=== PATIENT | female | born 1990 | race Caucasian/White ===

== ENCOUNTER 2017-11-11 13:55 | Emergency (ER) | payer BC ==
[2017-11-11 14:07] VITALS: BP 132/82
--- NOTE | 2017-11-11 14:36 | EDM.PDOC ---
<Yolanda Cohen - Last Filed: 11/11/17 14:24> ED HPI GENERAL MEDICAL PROBLEM - General Chief Complaint: Lower Extremity Injury/Pain Stated Complaint: ANKLE/FOOT INJURY Time Seen by Provider: 11/11/17 14:11 Source of Information: Reports: Patient History Limitations: Reports: No Limitations - History of Present Illness INITIAL COMMENTS - FREE TEXT/NARRATIVE: Patient comes in today for c/o left foot pain. Patient was walking upstairs at 2100 yesterday when she missed a step and plantar flexed, striking the dorsal midfoot against the step. Patient was able to ambulate with assistance. Walking and palpation increase pain. Application of ice reduces pain. Rates pain at 6/10. Pain radiates proximally up her leg when taking a step. Patient denies ankle pain. Onset: Sudden Onset Date: 11/10/17 Onset Time: 21:00 Location: Reports: Lower Extremity, Left (dorsal mid foot) Quality: Reports: Ache Severity: Moderate Improves with: Reports: Cold Therapy Worsens with: Reports: Movement Treatments SUPERVISOR ROUGH END: Reports: Cold Therapy Left Feet Pain Score (Numeric/FACES): 6 - Related Data Allergies Allergy/AdvReac Type Severity Reaction Status Date / Time latex Allergy Rash Verified 11/11/17 14:02 Penicillins Allergy Hives Verified 11/11/17 14:02 Home Meds: Home Meds . 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 Neurological History: Reports: Migraines Psychiatric History: Reports: Anxiety - Infectious Disease History Infectious Disease History: Reports: Chicken Pox - Past Surgical History HEENT Surgical History: Reports: Oral Surgery Social & Family History - Tobacco Use Smoking Status *Q: Current Every Day Smoker Years of Tobacco use: 10 Packs/Tins Daily: 0.4 - Caffeine Use Caffeine Use: Reports: Soda Other Caffeine Use: mountain due;energy drinks - Recreational Drug Use Recreational Drug Use: No Review of Systems - Review of Systems Constitutional: Reports: No Symptoms Respiratory: Reports: No Symptoms. Denies: Shortness of Breath Cardiovascular: Denies: Chest Pain Musculoskeletal: Reports: Foot Pain (Left foot) Skin: Reports: Other (abrasion on left dorsal mid foot) ED EXAM, GENERAL - Physical Exam Exam Limited By: No Limitations General Appearance: Alert, WD/WN, No Apparent Distress Respiratory/Chest: No Respiratory Distress, Lungs Clear, Normal Breath Sounds Cardiovascular: Normal Peripheral Pulses, Regular Rate, Rhythm Extremities: Limited Range of Motion. No: Joint Swelling, Redness (Left dorsal midfoot ecchymosis swelling, and 3-4 cm diameter, minor abrasion. AROM: no pain with moving toes, slight pain with inversion, increased pain with eversion. PROM: pain with flexing 2nd toe, no pain with flexion of great toe or 3rd, 4th, or 5th toes. Palpation: no pain with palpation of medial/lateral malleolus, base of the 5th metatarsal, medial cuneiform, navicular, calcaneous or achilles. Pain with palpation of the base of the 2nd metatarsal, middle and lateral cuneiforms, and the cuboid. No pain with AROM or PROM of the ankle. ) Skin Exam: Ecchymosis (left dorsal midfoot ) Course - Vital Signs Last Recorded V/S: Last Vital Signs Temp 98.7 F 11/11/17 14:02 Pulse 72 11/11/17 14:02 Resp BP 132/82 11/11/17 14:02 Pulse Ox 98 11/11/17 14:02 - Orders/Labs/Meds Orders: Active Orders 24 hr Category Date Time Status Foot Comp Min 3V Lt [CR] Stat Exams 11/11/17 14:21 Taken Departure - Departure Disposition: Home, Self-Care 01 Clinical Impression: Foot abrasion Qualifiers: Encounter type: initial encounter Laterality: left Qualified Code(s): S90.812A - Abrasion, left foot, initial encounter Sprain of foot, left Qualifiers: Encounter type: initial encounter Qualified Code(s): S93.602A - Unspecified sprain of left foot, initial encounter - Discharge Information Referrals: PCP,None [Primary Care Provider] - Forms: ED Department Discharge Additional Instructions: Soak your foot in warm soapy water 2 times per day and apply antibiotic ointment after. Ice your foot for 15 minutes 3 times per day for 2 days. Take motrin or tylenol for pain. Please return if you are worse or your primary care provider. - My Orders Last 24 Hours: My Active Orders 11/11/17 14:21 Foot Comp Min 3V Lt [CR] Stat - Assessment/Plan Last 24 Hours: My Active Orders 11/11/17 14:21 Foot Comp Min 3V Lt [CR] Stat <Jatin Moscoso - Last Filed: 11/11/17 15:13> Review of Systems - Review of Systems Review Of Systems: See Below ED EXAM, GENERAL - Physical Exam Exam: See Below Course - Re-Assessments/Exams Free Text/Narrative Re-Assessment/Exam: 11/11/17 15:11 I examined the patient myself and I agree with Yolanda's assessment and plan. Her foot x-ray looks good. I will discharge her home. Departure - Departure Time of Disposition: 15:15 Condition: Good - Discharge Information *PRESCRIPTION DRUG MONITORING PROGRAM REVIEWED*: Not Applicable *COPY OF PRESCRIPTION DRUG MONITORING REPORT IN PATIENT LISA: Not Applicable
--- NOTE | 2017-11-11 15:12 | CR ---
Left foot: Four views of the left foot were obtained. Comparison: No previous foot exam. Joint spaces are maintained. No fracture, dislocation or other bony abnormality is seen. Impression: 1. No abnormality is appreciated on left foot exam. Diagnostic code #1
== END 2017-11-11 15:45 | disposition home or self-care (01) ==
LOC: JD.ED 13:55
DX: S93.602A Unspecified sprain of left foot, initial encounter (principal); S90.32XA Contusion of left foot, initial encounter; S90.812A Abrasion, left foot, initial encounter; F17.210 Nicotine dependence, cigarettes, uncomplicated; Z91.040 Latex allergy status; Z88.0 Allergy status to penicillin; W22.8XXA Striking against or struck by other objects, initial encounter
CPT/HCPCS: 73630-26-LT; 73630-LT; 99283

== ENCOUNTER 2018-07-26 09:12 | Emergency (ER) | payer BC ==
[2018-07-26 09:39] VITALS: BP 123/70
[2018-07-26] MEDS ORDERED: predniSONE 20 MG Tab PO ONE (09:50)
--- NOTE | 2018-07-26 10:06 | EDM.PDOC ---
ED HPI GENERAL MEDICAL PROBLEM - General Chief Complaint: Allergic Reaction Stated Complaint: ALLERGIC RX EFFECTING EYES Time Seen by Provider: 07/26/18 09:41 Source of Information: Reports: Patient, RN Notes Reviewed - History of Present Illness INITIAL COMMENTS - FREE TEXT/NARRATIVE: 27-year-old female used some eye shadow and other makeup on her eyes yesterday. Starting to get swelling and itchiness of her eyes last evening. That continues today. He did take a Benadryl last evening but has not taken anything yet today. No chest pain or difficulty breathing no throat swelling or other facial swelling. No hives or rash. Eye Pain Score (Numeric/FACES): 2 - Related Data Allergies Allergy/AdvReac Type Severity Reaction Status Date / Time latex Allergy Rash Verified 07/26/18 09:40 Penicillins Allergy Hives Verified 07/26/18 09:40 Home Meds: Home Meds . 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 Neurological History: Reports: Migraines Psychiatric History: Reports: Anxiety - Infectious Disease History Infectious Disease History: Reports: Chicken Pox - Past Surgical History HEENT Surgical History: Reports: Oral Surgery Social & Family History - Caffeine Use Caffeine Use: Reports: Soda Other Caffeine Use: mountain due;energy drinks ED ROS ALLERGIC REACTION - Review of Systems Review Of Systems: See Below Constitutional: Denies: Fever, Chills, Diaphoresis HEENT: Denies: Dental Pain, Eye Pain, Sinus Problem, Throat Pain, Throat Swelling Respiratory: Denies: Shortness of Breath, Wheezing Cardiovascular: Denies: Chest Pain GI/Abdominal: Denies: Abdominal Pain, Nausea, Vomiting Musculoskeletal: Reports: No Symptoms Skin: Denies: Pruritis, Rash Neurological: Reports: No Symptoms ED EXAM GENERAL NO PERIP PULSE - Physical Exam Exam: See Below General Appearance: Alert, No Apparent Distress Eye Exam: Bilateral Eye: Periorbital Changes (moderate swelling of upper and lower eyelids bilat), PERRL, Other (no conjunctival injection, no drainage) Ears: Normal External Exam Nose: Normal Inspection Throat/Mouth: Normal Inspection, Normal Oropharynx Head: Atraumatic, Other (no other area of facial swelling) Respiratory/Chest: No Respiratory Distress, Lungs Clear. No: Wheezing Cardiovascular: Regular Rate, Rhythm Neurological: Alert, Oriented, No Motor/Sensory Deficits Skin Exam: Warm, Dry, Normal Color, No Rash Course - Vital Signs Last Recorded V/S: Last Vital Signs Temp 98.2 F 07/26/18 09:36 Pulse 66 07/26/18 09:36 Resp 18 07/26/18 09:36 BP 123/70 07/26/18 09:36 Pulse Ox 100 07/26/18 09:36 - Orders/Labs/Meds Meds: Medications Discontinued Medications Generic Name Dose Route Start Last Admin Trade Name Raine PRN Reason Stop Dose Admin Prednisone 40 mg 07/26/18 09:50 07/26/18 09:54 Prednisone PO 07/26/18 09:51 40 mg ONETIME ONE Administration Departure - Departure Time of Disposition: 10:02 Disposition: Home, Self-Care 01 Condition: Fair Clinical Impression: Allergic reaction Qualifiers: Encounter type: initial encounter Qualified Code(s): T78.40XA - Allergy, unspecified, initial encounter - Discharge Information Instructions: Allergies, Adult Referrals: PCP,None [Primary Care Provider] - Forms: ED Department Discharge Additional Instructions: you have been given prednisone 40 mg orally while here in the ED. Take another 40 mg dose this evening and than q AM for the next 3 days. Benadryl q 8 hr as needed for severe itchiness. Also take claritin or zyrtec daily for the next 3 or 4 days until symptoms have completely resolved.
== END 2018-07-26 10:10 | disposition home or self-care (01) ==
LOC: JD.ED 09:12
DX: T78.49XA Other allergy, initial encounter (principal); H57.89 Other specified disorders of eye and adnexa; Z91.040 Latex allergy status; Z88.0 Allergy status to penicillin
CPT/HCPCS: 99283; A9270

== ENCOUNTER 2021-12-21 04:41 | Inpatient (IN) | payer OTHER ==
[2021-12-21] MEDS ORDERED: Nalbuphine HCl 10 MG/ 1ML Amp IVPUSH PRN (04:53)
[2021-12-21] MEDS ORDERED: Sodium Chloride 0.9% 10 ML Syringe FLUSH PRN (04:53)
[2021-12-21] MEDS ORDERED: Calcium Carbonate 500 MG Tab.Chew PO PRN (04:53)
[2021-12-21] MEDS ORDERED: Lidocaine 1% 50 ML MDV INJECT ONE (04:53)
[2021-12-21] MEDS ORDERED: Acetaminophen 325 MG Tab PO PRN ×2 (04:53→06:31)
[2021-12-21] MEDS ORDERED: Ondansetron 4 MG/2 ML SDV IVPUSH PRN (04:53)
[2021-12-21] MEDS ORDERED: Oxytocin/Lactated Ringers 10 UNIT/1,000 ML BAG IV SCH (05:00)
[2021-12-21] MEDS: Lactated Ringers 1,000 ML IV SCH ×2 (05:00→05:57)
[2021-12-21] MEDS ORDERED: Bupivacaine/fentaNYL/NS 100 ML Bag EPIDUR PRN (05:21)
[2021-12-21] MEDS ORDERED: fentaNYL 100 MCG/2 ML SDV EPIDUR PRN (05:21)
[2021-12-21] MEDS ORDERED: ePHEDrine 50 MG/ML SDV IVPUSH PRN (05:21)
[2021-12-21] MEDS ORDERED: diphenhydrAMINE 50 MG/ML SDV IVPUSH PRN (05:21)
[2021-12-21] MEDS ORDERED: Benzocaine/Menthol 20%-0.5% Spray 78 GM Cannister TOP PRN (06:31)
[2021-12-21] MEDS ORDERED: Witch Hazel Medicated Pads 40/Jar TOP PRN (06:31)
[2021-12-21] MEDS ORDERED: Docusate Sodium 100 MG Cap PO PRN (06:31)
[2021-12-21] MEDS: Ibuprofen 600 MG Tab PO PRN ×2 (08:17→18:21)
[2021-12-21] MEDS ORDERED: Sodium Chloride 0.9% 10 ML Syringe FLUSH SCH (09:00)
[2021-12-22] MEDS: Ibuprofen 600 MG Tab PO PRN (04:00)
[2021-12-22 09:57] VITALS: BP 105/86; PULSE 73
== END 2021-12-22 12:40 | disposition home or self-care (01) | DRG 807 ==
LOC: JD.OBCHECK 04:41 → JD.OB 04:49 → JD.OBCHECK 05:12 → OBSVTOIN 06:27 → JD.OB 10:43
PROVIDERS: ADMIT Obstetrics & Gynecology; ATTEND Obstetrics & Gynecology
PROC: 10E0XZZ Delivery of Products of Conception, External Approach (ICD-10-PCS; principal; 2021-12-21)
PROC: 0KQM0ZZ Repair Perineum Muscle, Open Approach (ICD-10-PCS; 2021-12-21)
PROC: 10907ZC Drainage of Amniotic Fluid, Therapeutic from Products of Conception, Via Natural or Artificial Opening (ICD-10-PCS; 2021-12-21)
DX: O77.0 Labor and delivery complicated by meconium in amniotic fluid (principal); Z37.0 Single live birth; O70.1 Second degree perineal laceration during delivery; O99.62 Diseases of the digestive system complicating childbirth; K21.9 Gastro-esophageal reflux disease without esophagitis; O76 Abnormality in fetal heart rate and rhythm complicating labor and delivery; Z88.0 Allergy status to penicillin; Z91.040 Latex allergy status; Z87.891 Personal history of nicotine dependence
CPT/HCPCS: 36415; 59020; 59409; 85025; 86592; A9270-GY; J2001; J2590; J7120

== ENCOUNTER 2023-07-20 08:10 | Emergency (ER) | payer SELFPAY ==
[2023-07-20] MEDS: Diphtheria,Pertussis(Acell),Tetanus Vaccine 0.5 ML Syringe IM ONE (09:29)
[2023-07-20 12:32] VITALS: BP 128/72; PULSE 85
== END 2023-07-20 09:10 | disposition home or self-care (01) ==
LOC: JD.ED 08:10
DX: S51.851A Open bite of right forearm, initial encounter (principal); Z91.040 Latex allergy status; Z88.0 Allergy status to penicillin; Z23 Encounter for immunization; W54.0XXA Bitten by dog, initial encounter
CPT/HCPCS: 73090-26-RT; 73090-RT; 90471; 90715; 99283; 99283-25

== ENCOUNTER 2023-11-24 14:23 | Emergency (ER) | payer SELFPAY ==
[2023-11-24] MEDS: Sodium Chloride 0.9% 10 ML Syringe FLUSH ONE (16:23)
[2023-11-24] MEDS: Iopamidol 612 MG/ML 100 ML Bottle IVPUSH ONE (16:23)
[2023-11-24 17:23] LABS: BASOPHILS PERCENT AUTO 0.4 % (0.0-1.0); EOSINOPHILS PERCENT AUTO 0.4 % (0.0-6.0); HEMATOCRIT 45.5 % (37.0-47.0); HEMOGLOBIN 14.8 gm/dl (12.0-16.0); IMMATURE GRAN ABSOLUTE AUTO 0.01 K/mm3 (0.00-0.05); IMMATURE GRAN PERCENT AUTO 0.2 % (0.0-0.4); LYMPHOCYTES ABSOLUTE AUTO 1.1 K/mm3 (1.0-4.8); LYMPHOCYTES PERCENT AUTO 21.8 % (24.0-44.0); MEAN CORPUSCULAR HEMOGLOBIN 29.5 pg (28.0-32.0); MEAN CORPUSCULAR HGB CONC 32.5 g/dl (32.0-36.0); MEAN CORPUSCULAR VOLUME 90.8 fl (83.0-99.0); MEAN PLATELET VOLUME 10.5 fl (9.4-12.3); MONOCYTES ABSOLUTE AUTO 0.5 K/mm3 (0.0-0.8); NEUTROPHILS ABSOLUTE AUTO 3.3 K/mm3 (1.8-7.7); NEUTROPHILS PERCENT AUTO 67.2 % (41.0-71.0); PLATELET COUNT,PLT 182 K/mm3 (150-400); RED BLOOD CELL COUNT 5.01 M/mm3 (4.10-5.30); WHITE BLOOD CELL COUNT,WBC 4.91 K/mm3 (3.9-11.3)
[2023-11-24 17:42] LABS: A/G RATIO 1.1 (1-2); BILIRUBIN TOTAL 0.4 mg/dL (0.2-1.0); BUN/CREATININE RATIO 16.3 (14-18); CREATININE 0.8 mg/dL (0.55-1.02); EST CRCL DRUG DOSING (CG) 95.38 mL/min; PROTEIN TOTAL,TP 7.7 g/dl (6.4-8.2)
[2023-11-24 17:51] LABS: LACTIC ACID 0.8 mmol/L (0.4-2.0)
[2023-11-24] MEDS: cefTRIAXone 2 GM in Sodium Chloride 0.9% 100 ML IV ONE (18:00)
[2023-11-24] MEDS: metroNIDAZOLE/Normal Saline 500 MG in Premix Bag 1 BAG IV ONE (18:36)
[2023-11-24 20:25] VITALS: BP 125/76; PULSE 78
== END 2023-11-24 19:49 | disposition home or self-care (01) ==
LOC: JD.ED 14:23
DX: R21 Rash and other nonspecific skin eruption (principal); R60.9 Edema, unspecified; K04.7 Periapical abscess without sinus; K02.9 Dental caries, unspecified; Z88.0 Allergy status to penicillin; Z91.018 Allergy to other foods; Z91.040 Latex allergy status; Z86.16 Personal history of COVID-19; Z90.49 Acquired absence of other specified parts of digestive tract
CPT/HCPCS: 36415; 70487; 80053; 83605; 85025; 87651; 96365; 96367; 99284; J0696; J1836; J3490; Q9967